=== PATIENT | female | born 1990 | race African-American/Black ===

== ENCOUNTER 2016-11-07 20:05 | Emergency (ER) | payer SELFPAY ==
--- NOTE | ~2016-11-07 | CT71 ---
[facility] A Service [facility] RADIOLOGY TEXT RESULTS PATIENT: OLIVER GOMEZ LOCATION: [facility] : [birth year] UNIT #: [id number] AGE: [address]: So Davis MD SEX: F ORDER DR: [id number] [id number] [facility]. [place], [place] [address] [id number] E MR#: [id number] Acc #: [id number] NAME: OLIVER GOMEZ : 1990 SEX: F STUDY DATE/TIME: 11/07/2016 22:56 UNIT: [facility] ROOM: STUDY DESCRIPTION: CT Head Wo Contrast Attending Physician: So Davis M.D. Ordering Physician: So Davis M.D. Primary Care Physician: Primary Care Physician No MEDICAL IMAGING REPORT This report is preliminary unless electronic signature is present EXAM CT head INDICATION Altered mental status. Headache for [address] head dated 12/14/2012. TECHNIQUE CT head without contrast. This CT exam was performed with one or more of the following radiation dose reduction techniques: automatic exposure control, adjustment of mA and/or kV according to patient size, and iterative reconstruction. FINDINGS Axial noncontrast images were obtained from the skull base to the vertex. Ventricular size and configuration are normal. There is no evidence of acute infarct or hemorrhage. There are no extra-axial fluid collections. No mass lesion or mass effect is seen. There are no skull fractures. IMPRESSION Normal noncontrast head CT. Dictated by... Henry Martin M.D. THIS IS AN ELECTRONICALLY VERIFIED REPORT Henry Martin M.D. at 11/08/2016 4:03 AM RPC/joann [facility] A Service [facility] RADIOLOGY TEXT RESULTS PATIENT: OLIVER GOMEZ LOCATION: [facility] : [birth year] UNIT #: [id number] AGE: [address]: So Davis MD SEX: F ORDER DR: TD: 11/08/2016 03:04 JOB #: [id number] MEDICAL IMAGING REPORT Page 1 of 1 COPY
[~2016-11-07 20:05] MED LIST: BACTRIM DS TABL1 TAB PO; KEFLEX PO; VICODIN 5/500 T1 TAB PO
== END 2016-11-08 00:23 | disposition home or self-care (01) ==
LOC: CED 20:05
DX: R51 Headache (principal)
CPT/HCPCS: 36415; 70450; 84703; 96361; 96374; 96375; 99284; J0780; J1885; J2930